=== PATIENT | male | born 1975 | race Caucasian/White ===

== ENCOUNTER 2017-08-21 20:50 | Emergency (ER) | payer SELFPAY | END 2017-08-21 21:34 | disposition home or self-care (01) | LOC: NEPE 20:50 | DX: H66.91 Otitis media, unspecified, right ear (principal); Z72.0 Tobacco use | CPT/HCPCS: 99283 ==

== ENCOUNTER 2018-01-15 00:05 | Emergency (ER) | payer SELFPAY ==
[~2018-01-15 00:05] MED LIST: AUGM875T3 PO
[2018-01-15 00:18] VITALS: BP 123/70; PULSE 67; RESP 16; TEMP 98.2; O2SAT 97
[2018-01-15] MEDS ORDERED: IBUP1TAB7 PO (00:59)
--- NOTE | 2018-01-15 01:02 | PD ---
HPI Chief Complaint: Injury Time Seen by Provider: 00:56 Travel History International Travel<30 days: No Contact w/Intl Traveler<30days: No Traveled to known affect area: No History of Present Illness HPI 42-year-old male here with right shoulder pain. He reports that he fractured his right clavicle 10 years ago. He reports that he has occasional in his right shoulder since then. He reports that today he had increased pain in his right shoulder. He describes it as a sharp pain in his right shoulder. Reports that earlier today he had some numbness/sharp pain in his right shoulder but that resolved. Pain is constant but exacerbated by range of motion activities of the right shoulder. He does not recall any acute trauma to the shoulder or arm. He denies any heavy lifting or strenuous activity. Denies any neck pain, headache. He has no other complaints at this time. [facility] Past Medical History Medical History: Denies Significant Hx Diminished Hearing: No Immunizations Current: Yes Past Surgical History Surgical History: No Previous Surgery Social History Alcohol Use: No Tobacco Use: Yes (08/02 PPD) Substance Use: No Allergies-Medications (Allergen,Severity, Reaction): Coded Allergies: No Known Allergies (Unverified , 08/21/17) Reported Meds & Prescriptions Reported Meds & Active Scripts Active Ibuprofen 800 Mg Tab 800 Mg PO Q6HR PRN Augmentin (Amoxicillin-Clavulanate) 875-125 Mg Tab 1 Tab PO BID 7 Days Review of Systems Except as stated in HPI: all other systems reviewed are Neg Physical Exam Narrative GENERAL: Well-developed well-nourished male no acute distress SKIN: Warm and dry. HEAD: Atraumatic. Normocephalic. EYES: Pupils equal and round. No scleral icterus. No injection or drainage. ENT: No nasal bleeding or discharge. Mucous membranes pink and moist. NECK: Trachea midline. No JVD. CARDIOVASCULAR: Regular rate and rhythm. No murmur appreciated. RESPIRATORY: No accessory muscle use. Clear to auscultation. Breath sounds equal bilaterally. MUSCULOSKELETAL: Chronic appearing deformity to the distal right clavicle. There is tenderness to palpation of the right glenohumeral joint. Patient has pain with active abduction, external rotation of the right shoulder. Distal sensation is preserved. 2+ radial pulse bilaterally. Capillary refill less than 2 seconds all digits right hand. No tenderness to palpation along the cervical midline spine. Full range of motion of the neck. NEUROLOGICAL: Awake and alert. No obvious cranial nerve deficits. Motor grossly within normal limits. Normal speech. Data Data Last Documented VS Vital Signs Date Time Temp Pulse Resp B/P (MAP) Pulse Ox O2 Delivery O2 Flow Rate FiO2 01/15/18 00:18 98.2 67 16 123/70 (87) 97 MDM Medical Decision Making Medical Screen Exam Complete: Yes Emergency Medical Condition: Yes Medical Record Reviewed: Yes Differential Diagnosis Shoulder strain, rotator cuff impingement, cervical radiculopathy Narrative Course Physical examination consistent musculoskeletal right shoulder pain which is likely an acute exacerbation of chronic pain. He will be discharged with a short course of ibuprofen. Diagnosis Primary Impression: Right shoulder pain Additional Instructions: Medication as prescribed. Follow-up with a primary care physician or an orthopedist if symptoms persist. Return for any emergent medical conditions. Med/Other Pt SpecificInfo: Prescription(s) given Scripts Ibuprofen (Ibuprofen) 800 Mg Tab 800 MG PO Q6HR Y for PAIN, #40 TAB 0 Refills Prov: Fede Stewart MD 01/15/18 Disposition: 01 DISCHARGE HOME Condition: Stable John Del Real Jan 15, 2018 01:02
== END 2018-01-15 01:18 | disposition home or self-care (01) ==
LOC: NEPD 00:05
DX: M25.511 Pain in right shoulder (principal); F17.200 Nicotine dependence, unspecified, uncomplicated
CPT/HCPCS: 99283